=== PATIENT | female | born 1970 | race Two or more races ===

== ENCOUNTER 2016-08-23 22:42 | Emergency (ER) | payer MEDICAID ==
[~2016-08-23] VITALS: Ht 152.4 cm; Wt 68.0 kg
[2016-08-23] MEDS ORDERED: NKM (22:43)
[2016-08-23 22:51] VITALS: BP 169/100
[2016-08-23] MEDS ORDERED: Ketorolac 30mg Inj IV ONE (23:15)
[2016-08-23 23:17] LABS: BASOPHILS % (AUTO) 1.2 % (0.0-2.0); EOSINOPHILS % (AUTO) 1.6 % (0.0-3.0); LYMPHOCYTES % (AUTO) 33.4 % (20.0-45.0); MEAN CORPUSCULAR HEMOGLOBIN 30.8 PG (27.0-31.0); MEAN CORPUSCULAR HGB CONC 32.1 G/DL (32.0-36.0); MEAN CORPUSCULAR VOLUME 96 FL (80-99); MEAN PLATELET VOLUME 6.4 FL (6.5-10.1); MONOCYTES % (AUTO) 8.2 % (1.0-10.0); NEUTROPHILS % (AUTO) 55.6 % (45.0-75.0); PLATELET COUNT 305 K/UL (150-450); RED BLOOD COUNT 4.17 M/UL (4.20-5.40); RED CELL DISTRIBUTION WIDTH 12.7 % (11.6-14.8); WHITE BLOOD COUNT 8.6 K/UL (4.8-10.8)
--- NOTE | 2016-08-23 23:26 | Emergency Room Report ---
History of Present Illness General Chief Complaint: Headache Source: Patient, EMS Present Illness HPI Is a 45-year-old female presents with chief complaint headache. Onset was acute. She was in the car with her son and headache came on. Headache is diffuse in nature. She has similar symptom a month ago and went to [facility]. She got blood work done but no CT head. Denies any fever chills denies any nausea vomiting. Pain is sharp and throbbing nature. 10 out of 10. No focal deficit. No fever or chills. No family history of subarachnoid hemorrhage or aneurysm. also complaining of palpitation and Allergies: Coded Allergies: ACETAMINOPHEN (Verified Allergy, Unknown, 08/23/16) Patient History Past Medical History: see triage record, old chart reviewed Past Surgical History: none Pertinent Family History: none Social History: Denies: smoking Now: No Immunizations: other Reviewed Nursing Documentation: PMH: Agreed, PSxH: Agreed Nursing Documentation-PMH Hx Diabetes: Yes Review of Systems Eye: Denies: blurred vision, eye pain ENT: Denies: ear pain, nose congestion, throat swelling Respiratory: Denies: cough, shortness of breath Cardiovascular: Denies: chest pain, palpitations Gastrointestinal: Denies: abdominal pain, diarrhea, nausea, vomiting Musculoskeletal: Denies: back pain, joint pain Skin: Denies: rash Neurological: Reports: headache, Denies: numbness Endocrine: Denies: increased thirst, increased urine Hematologic/Lymphatic: Denies: easy bruising All Other Systems: negative except mentioned in HPI Physical Exam Vital Signs Date Time Temp Pulse Resp B/P Pulse Ox O2 Delivery O2 Flow Rate FiO2 08/23/16 22:39 98.2 98 16 169/100 99 vitals with htn Sp02 EP Interpretation: reviewed, normal General Appearance: well appearing, no apparent distress, alert Head: normocephalic, atraumatic Eyes: bilateral eye EOMI, bilateral eye PERRL ENT: hearing grossly normal, normal pharynx Neck: full range of motion, supple, no meningismus Respiratory: chest non-tender, lungs clear, normal breath sounds Cardiovascular #1: regular rate, rhythm, no murmur Gastrointestinal: normal bowel sounds, non tender, no mass, no organomegaly, no bruit, non-distended Musculoskeletal: back normal, gait/station normal, normal range of motion Psychiatric: anxious Skin: warm/dry Medical Decision Making Diagnostic Impression: Primary Impression: Headache Qualified Codes: R51 - Headache ER Course Patient with headache. No evidence of aneurysm, subarachnoid hemorrhage, bleed , neoplastic process. She is pain-free now. We'll discharge home. Lab Results Impression labs unremarkable EKG Diagnostic Results Rate: normal Rhythm: NSR ST Segments: no acute changes Chest X-Ray Diagnostic Results EP Interpretation: Yes Findings: no consolidation, no effusion, no pneumothorax, no acute cardiopulmonary disease Number of Views: 1 CT/MRI/US Diagnostic Results CT/MRI/US Diagnostic Results : Imaging Test Ordered: CT head Impression negative per radiologist. Last Vital Signs Date Time Temp Pulse Resp B/P Pulse Ox O2 Delivery O2 Flow Rate FiO2 08/23/16 22:51 98.2 88 16 169/100 99 Status: improved Disposition: HOME, SELF-CARE Condition: Stable Scripts Ibuprofen* (MOTRIN*) 600 Mg Tablet 600 MG ORAL THREE TIMES A DAY, #30 TAB 0 Refills Prov: VANNESA BAJWA M.D. 08/24/16 Referrals: [facility],REFERRING (PCP) Patient Instructions: General Headache Without Cause Additional Instructions: Followup with your DrMichele in 7 days. Return if symptom worsen. VANNESA BAJWA M.D. Aug 23, 2016 23:26
[2016-08-23 23:30] LABS: ANION GAP 16 (5-15); CALCIUM 9.2 mg/dL (8.6-10.2); CARBON DIOXIDE 24 mEQ/L (20-30); CHLORIDE 101 mEQ/L (98-107); CREATININE 0.6 mg/dL (0.5-0.9); GLOMERULAR FILTRATION RATE > 60 mL/min (>60); HEMOLYSIS 5; POTASSIUM 3.6 mEQ/L (3.4-4.9); SODIUM 141 mEQ/L (135-145)
[2016-08-24 00:54] VITALS: BP 119/62
[2016-08-24 01:18] LABS: APPEARANCE,URINE CLEAR; KETONES,URINE NEGATIVE (NEGATIVE); LEUKOCYTE ESTERASE ,URINE 1+ (NEGATIVE); NITRITE,URINE NEGATIVE (NEGATIVE); PH,URINE 6 (4.5-8.0); PROTEIN,URINE NEGATIVE (NEGATIVE); UROBILINOGEN,URINE NORMAL MG/DL (0.0-1.0)
[2016-08-24 01:24] LABS: RBC,URINE 0-2 /HPF (0 - 2); SQUAMOUS EPITHELIAL CELL,UR FEW /LPF (NONE/OCC); WBC,URINE 0-2 /HPF (0 - 2)
[2016-08-24 01:25] LABS: BACTERIA,URINE FEW /HPF
[2016-08-24] MEDS ORDERED: IBUPROFEN600 MG ORAL (02:00)
[2016-08-24 02:13] VITALS: BP 127/62
--- NOTE | 2016-08-24 10:01 | Diagnostic Imaging Report ---
Indication: PAIN Technique: Precontrast spiral acquisitions obtained through the brain. IV administration nonionic contrast. Arterial phase spiral acquisitions obtained through the brain. Delayed phase images were not performed per patient request. Multiplanar and 3-D reconstructions were generated. Total dose length product 2531 mGycm. CTDIvol(s) 70, 16, 82, 54 mGy. Radiation dose was minimized using automated exposure control Comparison: None Findings: Precontrast images demonstrate no acute intracranial bleed or edema, mass effect or midline shift. Normal hudson-white differentiation. Angiographic images demonstrate codominant bilateral vertebral arteries, which are both the nonstenotic. Patent basilar artery and proximal branches patent bilateral P1 segments and proximal posterior cerebral arteries neither posterior communicating artery is demonstrated. There is probably a patent anterior commuting artery. Patent distal internal carotid arteries, carotid siphons, M1, A1 segments and proximal branches. No evidence of significant stenosis. No evidence of aneurysm or vascular malformation. Bilateral pelvic arteries. Impression: Negative This agrees with the preliminary interpretation provided overnight by [facility] teleradiology service. The CT scanner at [facility] is accredited by the [employer] and the scans are performed using protocols designed to limit radiation exposure to as low as reasonably achievable to attain images of sufficient resolution adequate for diagnostic evaluation.
--- NOTE | 2016-08-25 23:13 | Cardiology Report ---
APPROVED REPORT EKG Measurement Heart [id number] Normal sinus rhythm Normal ECG
== END 2016-08-24 02:14 | disposition home or self-care (01) ==
LOC: EDBD 22:42 → EMR 23:04
DX: R51 Headache (principal); E11.9 Type 2 diabetes mellitus without complications; Z88.6 Allergy status to analgesic agent
CPT/HCPCS: 36415; 70496; 80048; 81001; 81025; 85025; 93005; 96374; 96375; 99284; J1885; J2405; Q9967